=== PATIENT | male | born 1985 | race Caucasian/White ===

== ENCOUNTER 2021-08-06 00:31 | Emergency (ER) | payer MEDICAID ==
[~2021-08-06] VITALS: Ht 175.3 cm; Wt 88.9 kg
[2021-08-06 00:37] VITALS: BP 162/110
[2021-08-06 02:20] VITALS: BP 162/110
[2021-08-06] MEDS ORDERED: HYDROcodone/APAP 5/325 MG 1 TAB TAB PO ONE (02:40)
== END 2021-08-06 02:20 | disposition left against medical advice (07) ==
LOC: MED 00:31
DX: M25.531 Pain in right wrist (principal); M79.641 Pain in right hand; I11.0 Hypertensive heart disease with heart failure; I50.9 Heart failure, unspecified
CPT/HCPCS: 73110; 73130; 99284

== ENCOUNTER 2021-12-13 17:09 | Emergency (ER) | payer MEDICAID, OTHER ==
[~2021-12-13] VITALS: Ht 175.3 cm; Wt 91.6 kg
[2021-12-13 17:10] VITALS: BP 174/113
--- NOTE | 2021-12-13 17:17 | NUR ---
Patient ambulated to bed 12 with steady/even gait.
--- NOTE | 2021-12-13 17:20 | NUR ---
RN at bedside for EKG
--- NOTE | 2021-12-13 17:25 | NUR ---
36 y/o M BIB self referred from PCP d/t high blood pressure and abnormal EKG. Pt A&Ox4, GCS 15 c/o SOB + wheezing upon laying in supine position for the last 2 weeks. Patient seen at PCP for symptoms; reports he feels like his heart is racing during sexual activity and with physical exertion. Pt compliant with medications. Pt denies chest pain, blurry vision, dizzniess, headache, syncope, fever, chills, sick household members. 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 Cap refill immediate. Skin pink/warm/dry. Bed locked in lowest position, side rails x 1. MEDHX: HTN, HF ALLERGIES: NKA MEDS: COREG, LASIX
[2021-12-13] MEDS ORDERED: ENALAPRILAT 2.5 MG/2 ML VIAL IVP ONE (17:35)
--- NOTE | 2021-12-13 17:56 | NUR ---
Blood sample handed to CPT Ursula at ER bedside
[2021-12-13 18:26] LABS: BASOPHILS % (AUTO) 0.2 % (0.0-2.0); EOSINOPHILS % (AUTO) 19.1 % (0.0-4.0); HEMATOCRIT 36.8 % (36-52); HEMOGLOBIN 12.3 g/dL (12.0-18.0); LYMPHOCYTES # (AUTO) 1.9 K/uL (2.0-11.5); LYMPHOCYTES % (AUTO) 17.7 % (20.5-51.1); MEAN CORPUSCULAR HEMOGLOBIN 28 pg (27-31); MEAN CORPUSCULAR HGB CONC 33 g/dL (33-37); MEAN CORPUSCULAR VOLUME 83.2 fL (80-94); MONOCYTES # (AUTO) 0.8 K/uL (0.8-1.0); MONOCYTES % (AUTO) 7.1 % (1.7-9.3); NEUTROPHILS # (AUTO) 5.9 K/uL (1.8-7.7); NEUTROPHILS % (AUTO) 55.9 % (42.2-75.2); PLATELET COUNT (AUTO) 324 K/uL (140-450); RED BLOOD CELL COUNT(AUTO) 4.42 MIL/uL (4.20-6.10); WHITE BLOOD COUNT (AUTO) 10.6 K/uL (4.8-10.8)
[2021-12-13 18:35] VITALS: BP 144/96
[2021-12-13 18:44] LABS: ALBUMIN 3.3 g/dL (3.4-5.0); CARBON DIOXIDE 25.8 mmol/L (21-32); POTASSIUM 3.8 mmol/L (3.5-5.1); TOTAL BILIRUBIN 0.5 mg/dL (0.0-1.0)
--- NOTE | 2021-12-13 19:20 | NUR ---
IV removed, catheter intact and site benign. Applied folded 2x2 gauze and tape to stop bleeding.
--- NOTE | 2021-12-13 19:21 | NUR ---
Patient discharged with v/s stable. Written and verbal after care instructions given and explained. Patient verbalized understanding. Ambulatory with steady gait. All questions addressed prior to discharge. Advised to follow up with PMD.
== END 2021-12-13 19:21 | disposition home or self-care (01) ==
LOC: MED 17:09
DX: R06.02 Shortness of breath (principal); I11.9 Hypertensive heart disease without heart failure; F12.10 Cannabis abuse, uncomplicated
CPT/HCPCS: 36415; 71045; 80053; 83880; 84484; 85025; 93005; 96374; 99285; J3490; Q0092